=== PATIENT | male | born 1985 | race African-American/Black ===

== ENCOUNTER 2021-09-06 05:53 | Inpatient (IN) | payer BC, OTHER ==
[2021-09-06 07:54] LABS: CHLORIDE 112 mmol/L (98-107); SODIUM 144 mmol/L (136-145)
[2021-09-06 07:56] LABS: CALCIUM 7.5 mg/dL (8.5-10.1)
[2021-09-06 07:57] LABS: ALBUMIN 1.6 g/dl (3.4-5.0); ANION GAP 8 MMOL/L (8-16); BLOOD UREA NITROGEN 12.6 mg/dL (7-18); CO2 25 mmol/L (21-32); GLUCOSE,RANDOM 98 mg/dL (74-106)
[2021-09-06 08:00] LABS: CREATININE 0.9 mg/dL (0.55-1.3); SGOT/AST 27 U/L (15-37); SGPT/ALT 29 U/L (13-61)
[2021-09-06 08:01] LABS: BILIRUBIN,TOTAL 0.3 mg/dL (0.2-1)
[2021-09-06 08:02] LABS: TOT PROT 5.1 g/dl (6.4-8.2)
[2021-09-06 08:03] LABS: ALK PHOS 83 U/L (45-117)
[2021-09-06 08:05] LABS: N-TERMINAL BNP 397.5 pg/ml (5-125)
[2021-09-06 08:19] LABS: BASO % 0.6 % (0-2.0); HEMATOCRIT 39.2 % (35.4-49); HEMOGLOBIN 12.9 GM/dL (11.7-16.9); LYMPH % 21.9 % (8-40); MCH 27.8 pg (25.7-33.7); MCHC 32.9 g/dl (32.0-35.9); MEAN CELL VOLUME 84.7 fl (80-96); MEAN PLT VOLUME 8.6 fl (7.5-11.1); MONO % 10.4 % (3.8-10.2); NEUT % 64.1 % (42.8-82.8); PLATELET COUNT 211 10^3/uL (134-434); RBC 4.63 M/mm3 (4.00-5.60); RDW 14.1 % (11.9-15.9); WHITE BLOOD COUNT 9.1 K/mm3 (4.0-10.0)
[2021-09-06] MEDS ORDERED: amLODIPine BESYLATE 5 MG TABLET (FP) PO ONE ×2 (14:15→21:03)
[2021-09-06] MEDS ORDERED: FUROSEMIDE 20 MG TABLET (FP) PO ONE (14:30)
[2021-09-06] MEDS ORDERED: FUROSEMIDE 40 MG TABLET (FP) ONE (16:03)
[2021-09-06] MEDS ORDERED: amLODIPine BESYLATE 5 MG TABLET (FP) ONE ×2 (16:03→21:22)
[2021-09-06] MEDS: amLODIPine BESYLATE 5 MG TABLET (FP) PO SCH ×2 (16:13→17:23)
[2021-09-06 16:44] LABS: EPI CELLS 34 /uL (0-25.1); HYALINE CASTS 18 /uL (0-3.1); PH,URINE 6.5 (5.0-8.0); URINE APPEARANCE CLEAR; URINE BACTERIA 32 /uL (0-1359); URINE BILIRUBIN NEGATIVE (NEGATIVE); URINE COLOR YELLOW; URINE GLUCOSE (UA) NEGATIVE (NEGATIVE); URINE KETONE NEGATIVE (NEGATIVE); URINE LEUK ESTERASE NEGATIVE (NEGATIVE); URINE NITRITE NEGATIVE (NEGATIVE); URINE PROTEIN 4+ (NEGATIVE); URINE UROBILINOGEN 0.2 mg/dL (0.2-1.0); URINE WBC 13 /uL (0-25.8)
[2021-09-06 17:49] LABS: URINE RBC 63.1 /uL (0-23.9)
[2021-09-06 22:13] LABS: INR 1.01 (0.83-1.09); PROTHROMBIN TIME (PATIENT) 11.8 SEC (9.7-13.0)
[2021-09-06 22:16] LABS: ACTIVATED PTT 29.9 SECONDS (25.2-36.5)
[2021-09-07 02:27] VITALS: BMI 28.6
[2021-09-07] MEDS: amLODIPine BESYLATE 10 MG TABLET (FP) PO SCH (09:13)
[2021-09-07] MEDS ORDERED: LISINOPRIL 20 MG TABLET PO SCH (10:00)
[2021-09-07 10:06] LABS: HEMATOCRIT 40.4 % (35.4-49); HEMOGLOBIN 13.4 GM/dL (11.7-16.9); MCH 27.9 pg (25.7-33.7); MCHC 33.2 g/dl (32.0-35.9); MEAN CELL VOLUME 83.9 fl (80-96); MEAN PLT VOLUME 8.6 fl (7.5-11.1); PLATELET COUNT 207 10^3/uL (134-434); RBC 4.82 M/mm3 (4.00-5.60); RDW 13.7 % (11.9-15.9); WHITE BLOOD COUNT 10.3 K/mm3 (4.0-10.0)
[2021-09-07 10:31] LABS: BLOOD UREA NITROGEN 9.9 mg/dL (7-18)
[2021-09-07 10:34] LABS: CALCIUM 7.7 mg/dL (8.5-10.1)
[2021-09-07 10:35] LABS: MAGNESIUM 2.1 mg/dL (1.8-2.4)
[2021-09-07 10:37] LABS: CREATININE 0.9 mg/dL (0.55-1.3)
[2021-09-08] MEDS ORDERED: LISINOPRIL 5 MG TABLET PO ONE ×2 (02:19→14:45)
[2021-09-08] MEDS ORDERED: LISINOPRIL 5 MG TABLET PO SCH (10:00)
[2021-09-08] MEDS: amLODIPine BESYLATE 10 MG TABLET (FP) PO SCH (10:04)
[2021-09-08 10:09] LABS: BASO % 0.8 % (0-2.0); EOS % 1.7 % (0-4.5); HEMATOCRIT 40.7 % (35.4-49); HEMOGLOBIN 13.5 GM/dL (11.7-16.9); LYMPH % 19.9 % (8-40); MCH 27.8 pg (25.7-33.7); MCHC 33.2 g/dl (32.0-35.9); MEAN CELL VOLUME 83.8 fl (80-96); MEAN PLT VOLUME 8.8 fl (7.5-11.1); MONO % 8.8 % (3.8-10.2); NEUT % 68.8 % (42.8-82.8); PLATELET COUNT 205 10^3/uL (134-434); RBC 4.86 M/mm3 (4.00-5.60); RDW 13.5 % (11.9-15.9); WHITE BLOOD COUNT 9.6 K/mm3 (4.0-10.0)
[2021-09-08 10:53] LABS: CALCIUM 7.8 mg/dL (8.5-10.1)
[2021-09-08 10:54] LABS: ALBUMIN 1.5 g/dl (3.4-5.0); BLOOD UREA NITROGEN 9.1 mg/dL (7-18)
[2021-09-08] MEDS ORDERED: MIDAZOLAM HCL 2 MG/2 ML SINGLE DOSE VIAL IVPUSH ONE ×2 (10:55→11:12)
[2021-09-08 10:57] LABS: CREATININE 0.9 mg/dL (0.55-1.3)
[2021-09-08 10:58] LABS: MAGNESIUM 2.1 mg/dL (1.8-2.4)
[2021-09-08 10:59] LABS: BILIRUBIN,TOTAL 0.4 mg/dL (0.2-1); TOT PROT 4.9 g/dl (6.4-8.2)
[2021-09-08 11:01] LABS: PHOSPHOROUS 3.2 mg/dL (2.5-4.9)
[2021-09-08] MEDS ORDERED: SODIUM CHLORIDE 500 ML IV ONE (12:30)
[2021-09-09] MEDS: amLODIPine BESYLATE 10 MG TABLET (FP) PO SCH (09:11)
[2021-09-09 09:59] LABS: BASO % 0.6 % (0-2.0); EOS % 1.8 % (0-4.5); HEMOGLOBIN 13.7 GM/dL (11.7-16.9); LYMPH % 20.5 % (8-40); MCHC 33.3 g/dl (32.0-35.9); MEAN CELL VOLUME 83.8 fl (80-96); MEAN PLT VOLUME 8.5 fl (7.5-11.1); MONO % 9.5 % (3.8-10.2); NEUT % 67.6 % (42.8-82.8); PLATELET COUNT 199 10^3/uL (134-434); RBC 4.89 M/mm3 (4.00-5.60); RDW 13.6 % (11.9-15.9); WHITE BLOOD COUNT 9.1 K/mm3 (4.0-10.0)
[2021-09-09] MEDS ORDERED: LISINOPRIL 10 MG TABLET PO SCH (10:00)
[2021-09-09 10:40] LABS: ALBUMIN 1.5 g/dl (3.4-5.0); CALCIUM 7.7 mg/dL (8.5-10.1)
[2021-09-09 10:41] LABS: BLOOD UREA NITROGEN 8.7 mg/dL (7-18)
[2021-09-09 10:44] LABS: CREATININE 0.9 mg/dL (0.55-1.3)
[2021-09-09 10:45] LABS: BILIRUBIN,TOTAL 0.4 mg/dL (0.2-1); TOT PROT 4.9 g/dl (6.4-8.2)
[2021-09-09] MEDS ORDERED: PT OWN MED DRAWER 7, Y5N ONE ×2 (10:57→14:21)
[2021-09-09 15:33] VITALS: PULSE 83
[2021-09-09] MEDS ORDERED: LISINOPRIL 10 MG TABLET PO ONE (15:45)
[2021-09-09 16:50] VITALS: BP 156/98; TEMP 98.4
== END 2021-09-09 17:04 | disposition home or self-care (01) | DRG 700 ==
LOC: JER 05:53 → JERBED 12:18 → J5S 09-07 01:34
PROVIDERS: ADMIT Internal Medicine; ATTEND Internal Medicine
PROC: 0TB03ZX Excision of Right Kidney, Percutaneous Approach, Diagnostic (ICD-10-PCS; principal; 2021-09-08)
DX: N04.9 Nephrotic syndrome with unspecified morphologic changes (principal); E88.09 Other disorders of plasma-protein metabolism, not elsewhere classified; N17.9 Acute kidney failure, unspecified; N13.30 Unspecified hydronephrosis; I10 Essential (primary) hypertension; E03.8 Other specified hypothyroidism; I77.6 Arteritis, unspecified; I77.89 Other specified disorders of arteries and arterioles
CPT/HCPCS: 36415; 50200; 71046-TC-FY; 76775-TC; 80048; 80053; 81003; 82550; 82553; 82570; 83516; 83735; 83880; 84100; 84300; 84439; 84443; 84479; 84484; 85025; 85027; 85610; 85730; 86480; 86705; 86709; 86803; 86850; 86900; 86901; 87340; 87517; 88300-TC; 93005; 93010; 93970-TC; 99285-25; C9803; U0003; U0005